=== PATIENT | female | born 1970 | race Caucasian/White ===

== ENCOUNTER 2024-09-18 07:52 | Outpatient (CLI) | payer BC, SELFPAY ==
[2024-09-18 08:52] LABS: Basophils # 0.1 K/mm3 (0-0.2); Basophils % 1.5 % (0.1-2.0); Eosinophils # 0.2 K/mm3 (0.0-0.4); Eosinophils % 3.3 % (0.1-12.0); Hematocrit 44.2 % (37.0-47.0); Lymphocytes # 1.6 K/mm3 (0.7-4.5); Lymphocytes % 33.1 % (10-50); Mean Corpuscular HGB Conc 34.1 g/dL (31.8-35.4); Mean Corpuscular Hemoglobin 30.5 pg (27.0-31.2); Mean Corpuscular Volume 89.4 fl (81-99); Mean Platelet Volume 8.7 fl (7.4-10.4); Monocytes # 0.3 K/mm3 (0.1-1.0); Monocytes % 6.2 % (1.7-9.3); Neutrophils # 2.7 K/mm3 (1.8-7.8); Neutrophils % 55.9 % (37.0-80.0); Platelet Count 188 K/mm3 (142-424); Red Blood Count 4.94 M/mm3 (4.20-5.40); Red Cell Distribution Width 13.5 % (11.5-17.5); White Blood Count 4.8 K/mm3 (4.8-10.8)
[2024-09-18 08:58] LABS: Albumin Level 4.5 g/dl (3.5-5.0); Chloride 106 mmol/L (98-107); Potassium 4.5 mmoL/L (3.5-5.1); Sodium 141 mmol/L (136-145)
[2024-09-18 09:00] LABS: Blood Urea Nitrogen 25 mg/dl (7-17); Estimated Glomerular Filt Rate 88 ml/min (>60)
[2024-09-18 09:01] LABS: Alanine Aminotransferase 19 U/L (12-78); Albumin/Globulin Ratio 1.7 (1.1-1.8); Alkaline Phosphatase 67 U/L (38-126); Anion Gap 10.5 mEq/L (5-15); Aspartate Amino Transferase 27 U/L (14-36); Bilirubin,Total 0.7 mg/dl (0.2-1.3); Carbon Dioxide 29 mmol/L (22.0-30.0); Cholesterol 221 mg/dl (140-200); GFR (African American) 106 ML/MIN (>60); Globulin 2.7 g/dL (1.3-3.2); Glucose 107 mg/dl (74-100); Total Protein,Serum 7.2 g/dl (6.3-8.2); Triglycerides 54 mg/dl (30-150); VLDL Cholesterol 11 mg/dL (0-40)
[2024-09-18 09:02] LABS: Chol/HDL Ratio 2.8 (1-3.5); HDL Cholesterol 79 mg/dl (40-60)
[2024-09-18 09:21] LABS: Hemoglobin A1C 4.7 % (4.0-6.0)
[2024-09-18 09:33] LABS: Thyroid Stimulating Hormone 1.82 uIU/mL (0.465-4.68)
[2024-09-18 10:42] LABS: Vitamin B12 844 pg/mL (239-931)
== END 2024-09-18 23:59 | disposition home or self-care (01) ==
LOC: LAB 07:58
PROVIDERS: PCP Nurse Practitioner Family; Visit Provider Nurse Practitioner Family
DX: Z00.00 Encounter for general adult medical examination without abnormal findings (principal); Z86.39 Personal history of other endocrine, nutritional and metabolic disease; R23.2 Flushing
CPT/HCPCS: 36415; 80050; 80053; 80061; 82607; 83036; 84443; 85025

== ENCOUNTER 2024-11-17 13:55 | Outpatient (CLI) | payer BC, SELFPAY ==
--- NOTE | 2024-11-17 14:04 | MM_ITS ---
PROCEDURE INFORMATION: Exam: US Right Breast, Complete MG Bilateral Diagnostic Breast Tomosynthesis Exam date and time: 11/17/2024 2:26 PM Age: 54 years old Clinical indication: Right-sided nipple discharge. TECHNIQUE: Imaging protocol: Complete ultrasound of all four quadrants of the right breast and the retroareolar regions, including ultrasound of the axilla when performed. Bilateral Diagnostic tomosynthesis and 2D mammography including computer-aided detection (CAD) when performed. Unilateral or bilateral exam. COMPARISON: MG MM DIG MAMM BI DX W/CAD 11/17/2024 1:57 PM FINDINGS: MAMMOGRAPHY: Breast composition: There are scattered areas of fibroglandular density. Breast mammogram findings: Post pectoral silicone implants are present. The contours are smooth. There is a circumscribed rounded mass in the right breast upper inner quadrant measuring 0.8 cm, which is stable since 01/29/2022, consistent with a benign process. No new or suspicious mass, architectural distortion or suspicious calcifications. ULTRASOUND: Breast ultrasound findings: Ultrasound of the right retroareolar region demonstrates a complicated cyst in the upper inner quadrant, 12 o'clock axis, 2 cm from the nipple that correlates to the circumscribed mass seen mammographically, measuring 0.7 x 0.6 x 1.0 cm. This is considered benign. In the right upper outer quadrant, 9 o'clock axis, 1 cm from the nipple there are dilated ducts with internal debris. If there is concerning nipple discharge, these can be targeted for ultrasound-guided needle biopsy. There is no suspicious mass, shadowing, or distortion. Clustered microcysts are seen in the right breast upper outer quadrant, 10 o'clock axis, 11 cm from the nipple. These appear benign. IMPRESSION: 1. Dilated ducts with internal debris in the right breast 9 o'clock axis, 1 cm from the nipple. If there is concerning nipple discharge, these can be targeted for ultrasound-guided needle biopsy. 2. Continued clinical monitoring for any persistent, spontaneous, bloody or clear nipple discharge is recommended. If the symptoms persist, breast MRI would be recommended. ASSESSMENT: BI-RADS Category 4: Suspicious.
== END 2024-11-17 23:59 | disposition home or self-care (01) ==
LOC: RAD 13:55
PROVIDERS: PCP Nurse Practitioner Family; Visit Provider Nurse Practitioner Family
DX: Z12.31 Encounter for screening mammogram for malignant neoplasm of breast (principal); N64.52 Nipple discharge; Z98.82 Breast implant status
CPT/HCPCS: 76641; 77062; 77066; G0279

== ENCOUNTER 2024-12-09 07:23 | Outpatient (CLI) | payer BC, SELFPAY ==
--- NOTE | 2024-12-09 | MM_ITS ---
FINAL REPORT CLINICAL HISTORY: s/p bx. rt breast clip placement FINDINGS: MAMMOGRAM RIGHT 2D TECHNIQUE: Standard digital 2D views COMPARISON: Abnormal diagnostic mammogram October 2024 DENSITY: There are scattered areas of fibroglandular density FINDINGS: Post biopsy marker clip is noted in satisfactory position in the central right breast at 9:00.. Postbiopsy changes are noted. IMPRESSION: Biopsy marker clip in good position ASSESSMENT: Post procedure mammogram for marker placement RECOMMENDATION: Pending histopathology evaluation Authenticated and ERN
--- NOTE | 2024-12-09 | US_ITS ---
FINAL REPORT CLINICAL HISTORY: NIPPLE DISCHARGE/ ABNORMAL MAMMVRT BREAST - RT BREAST 900 -- DR. CLIFF TIWARI FINDINGS: ULTRASOUND-GUIDED RIGHT BREAST CORE BIOPSY HISTORY: Abnormal ultrasound. Elongated lesion right breast 9:00 possibly dilated duct. COMPARISON: Recent abnormal ultrasound October 2024 TECHNIQUE: The right breast was prepped in a routine sterile fashion and locally anesthetized with 1% lidocaine. Using sonographic guidance a 15 gauge needle was directed toward the lesion of interest. Care was taken to reduce the risk of needle puncturing adjacent breast implant. The needle was positioned within the outer periphery of the lesion. A total of 4 passes were made with a 16 gauge core biopsy needle. A biopsy marker clip was deployed in satisfactory position. A post biopsy mammogram was performed and dictated separately. Limited postbiopsy images showed no evidence of significant hemorrhage. Procedure was well tolerated. IMPRESSION: 1. Technically successful image guided biopsy of right breast lesion as above. Authenticated and ERN
== END 2024-12-09 23:59 | disposition home or self-care (01) ==
PROVIDERS: PCP Nurse Practitioner Family; Visit Provider Nurse Practitioner Family
DX: R92.8 Other abnormal and inconclusive findings on diagnostic imaging of breast (principal); N64.52 Nipple discharge
CPT/HCPCS: 19083; 77065

== ENCOUNTER 2025-08-04 14:57 | Outpatient (CLI) | payer BC, SELFPAY ==
--- OUTSIDE RECORDS SUMMARY | 2022-03-06 07:20 | XMS_ITS | Continuity of Care Document ---
Author Organization [facility] Address [address] [place] [phone] Phone Care Team Providers Care Accounting Clerks Supervisor Name Role Phone Seth Arroyo Unavailable Unavailable Advance Directives Directive Yes / No Effective Date File Name No Information Encounters Encounter Description Practice Location Reason(s) For Visit Diagnoses Date Provider [facility], [address] [place] [address], [id number], tel:[phone] [facility] Major depression 2021 Miguel Seth. [address] [facility] [place], [id number], [place]. tel:[phone] [facility], [address] [place] [address], [id number], tel:[phone] [address] [place] [address] Major depression 2021 Miguel Seth. [address] [facility] [place], [id number], [place]. tel:[phone] [facility], [address] [place] [address], [id number], [place] tel:[phone] [facility] Major depression 2021 Miguel Seth. [address] [facility] [place], [id number], [place]. tel:[phone] [facility], [address] [place] [address], [id number], tel:[phone] [facility] Major depression Dec-07- 2021 Miguel Seth. [address], [place], [place], [id number], [place]. tel:[phone] Family History Family Member Type Diagnosis Age At Onset Daughter Problem (finding) Alive and well Daughter Problem (finding) manic-depressive state Payers Payer name Insurance type Covered republican ID Authoriza tion(s) No Information Social History [...]
--- OUTSIDE RECORDS SUMMARY | 2024-12-24 05:00 | XMS_ITS ---
Author Organization [facility] Address [address] [place] [address] Care Team Providers Care Community Support Worker Name Role Phone MERLY FRANK Primary Care Provider Unavailab cynthia Abernathy SLIP COVER ESTIMATOR-BC, Justina Unavailable [facility] Unavailable Unavailable REASON FOR VISIT RT HAND Encounters Encounter Location Date Provider Diagnosis [facility] [address] [place] [address] 12/24/2024 Justina Abernathy Plan Of Treatment No Information Progress Notes * SHONDA ASCENCIO LDOB:[birth year] (55 yo F)Acc No.[id number]:12/24/2024 Progress Notes Patient: SHONDA COLLADO Provider: Anna Abernathy APRN, MSN, SLIP COVER ESTIMATOR-BC :1970 A ge:54 Y S ex:Female Date:12/24/2024 Address:[address] [id number] Pcp:MERLY FRANK Subjective: * Chief Complaints: * 1 . RT HAND. * Medical History: Objective: * Vitals: Therapeutic Interventions: Assessment: Plan: * Treatment: * * Electronic signature of Geneva Abernathy SLIP COVER ESTIMATOR-BC on 08/04/2025 at 03:00 PM EDT Sign off status: Pending * Provider: Anna Abernathy APRN, MSN, SLIP COVER ESTIMATOR-BC Date: 0 12/24/2024 Generated for Printi ng/Faxing/eTransmitting on: 0 08/04/2025 03:00 PM EDT
--- OUTSIDE RECORDS SUMMARY | 2025-06-20 12:18 | XMS_ITS | Encounter Summary ---
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 Name Role Phone Unavailable Primary Care Provider Unavailabl e Reason for Visit * Physical Medicine - Authorized Specialty Diagnoses / Procedures Referred By Teresita treviño Referred To Contact Physical Therapist / Physical Therapy Diagnoses Overactive bladder Sharlene Dc MD [address] [place] [address] Phone: tel: fax: Hermila Aaron, PT [address] [place] [address] Phone: tel: fax: Referral ID Status Reason Start Date Expiration Date Visits Requested Visits Authorized [id number] Authorized Specialty Services Required 06/20/2025 06/20/2026 90 Encounter Details Date Type Department Care Team (Latest Contact Info) Description 06/20/2025 12:18 PM EDT - 06/20/2025 11:59 PM EDT Hospital [facility] Physical [facility] [address] [place] [address] Hermila Aaron, PT [address] [place] [address] Discharge Disposition: Home or Self [...] 06/02/25 Progressing MD Diagnosis: Overactive bladder Restrictions/Precautions: [place] Physician: Dao CONTRERAS Follow Up: 09/05/25 Evaluation Date: 06/20/2025 Reassessment Due: 07/21/25 Current Bladder treatment (meds):MYRBETRIQ Current Bowel treatment (supplements/meds):Linzess [] Psyllium (amount): [x] other Primary Insurance: [employer] PPO Insurance Authorization: AMB REFERRAL TO PHYSICAL THERAPY Authorized (06/02/2025-06/02/2026) Visits Requested Visits Authorized Visits Completed Visits Scheduled 1 1 -- Details Referral ID: [id number] Authorization Status Reason: -- Authorization Comments: -- Referred To: Kandy Sidhu PT at ED PHYSICAL THERAPY Referred By: Sharlene Dc MD at [facility] [place] [facility], [facility] [place] [facility] Edg Creation Date: 06/02/2025 Referral Reasons: Specialty Services Required Referral Order: AMB REFERRAL TO PHYSICAL THERAPY Time In/Out: [id number] Timed Treatment Minutes: Therapeutic activities 14 minutes [...] absent Discharge absent Pain absent GH 3cm [place] Pelvic Strength 0/5 Prolapse: 2 Strength: 0/5 Urinary frequency Daytime - frequent , she goes every 3-4 hours ; leaks if holds too long Nighttime - [x] 0 [x] 1 [] 2 [] 3 [] 4 other: Bowel problems - Frequency of BM - [x] daily [] qod [] Specify: Valsalva to defecate - [] yes [x] No [] sometimes [place] Stool chart type: [] 1 [] 2 [...] / tearing: [x] yes [] no Normal post- healing - [x] yes [] no (explain) [...] Living situation: sign other and mother, 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 Patient Goals: she would like to work [...] Mild atrophy [] other (explain): Sensation: Anal [place] [x] present [] absent [] diminished [] [...] pain. [x] Unmet [] Progressing [] Met Care Home Goals: (set for 8 weeks) Update/Status Pt [...] weeks. Treatments may consist of Therapeutic exercise 64503, Neuromuscular re-education 21370, Manual soft tissue and/or joint mobilization 71181, Patient education, Electrical stimulation (unattended) 33301, Electrical stimulation (unattended Medicare) G0283, Therapeutic activity 29847, and Self care/Home management training 19230. Patient present with co-morbidities of incontinence and [...] 9:00 AM EDT Office Visit [facility] [address] [address] China Tavares, TIM [address] [place] [address] Scheduled Referrals Name Type Priority Associated Diagnoses Orde r Schedule AMB REFERRAL TO PHYSICAL THERAPY Outpatient Referral Routine Overactive bladder Ordered: 06/02/2025 documented as of this encounter Visit Diagnoses Not on filedocumented in this encounter
--- OUTSIDE RECORDS SUMMARY | 2025-06-28 09:11 | XMS_ITS | Encounter Summary ---
Author Organization [place] [address] Care Team Providers Care Corking Machine Operator Name Role Phone Unavailable Primary Care Provider Unavailabl e Reason for Visit * Physical Medicine - Authorized Specialty Diagnoses / Procedures Referred By Teresita treviño Referred To Contact Physical Therapist / Physical Therapy Diagnoses Overactive bladder Sharlene Dc MD [address] [place] [address] Phone: tel: fax: Hermila Aaron, PT [address] [place] [address] Phone: tel: fax: Referral ID Status Reason Start Date Expiration Date Visits Requested Visits Authorized [id number] Authorized Specialty Services Required 06/20/2025 06/20/2026 90 Encounter Details Date Type Department Care Team (Latest Contact Info) Description 06/28/2025 9:11 AM EDT - 06/28/2025 11:59 PM EDT Hospital Encounter [facility] Physical Therapy [address] [place] [address] Hermila Aaron, PT [address] [place] [address] Discharge Disposition: Home or Self [...] in this encounter Progress Notes * Hermila Aaron PT - 06/28/2025 9:15 AM EDT Images from the original note were not included. Physical Therapy Treatment Note Patient Name: Chanda Larry : 1970 06/28/2025 Visit #: 2 Onset Date: chronic, MD referral 06/02/25 Progressing MD Diagnosis: Overactive bladder Restrictions/Precautions: [place] Physician: Dao CONTRERAS Follow Up: 09/05/25 Evaluation Date: 06/20/2025 Reassessment Due: 07/21/25 Current Bladder treatment (meds):MYRBETRIQ Current Bowel treatment (supplements/meds):Linzess [] Psyllium (amount): [x] other Primary Insurance: ANTHEM/ANTHEM PPO Insurance Authorization: AMB REFERRAL TO PHYSICAL THERAPY Authorized (06/20/2025-06/20/2026) Visits Requested Visits Authorized Visits Completed Visits Scheduled 1 2 Details Referral ID: [id number] Authorization Status Reason: Covered Benefit Authorization Comments: -- Referred To: Hermila Aaron, PT at [facility] Referred By: Sharlene Dc MD at [facility], [facility] Creation Date: 06/02/2025 Referral Reasons: Specialty Services Required Referral Order: AMB REFERRAL TO PHYSICAL THERAPY Time In/Out: 921/1000 Timed Treatment Minutes: Therapeutic activities 5 minutes Therapeutic Exercise 30 minutes Total Timed Code Treatment Minutes: 35 Total Treatment Minutes: 35 Medication Changes: no changes Pain is not an issue for which treatment is being performed. Subjective She is doing her exercises. Reports it doesn't feel prolapsed as much. Reports she still leaks after urination Bladder - she has not increased her water intake yet. She has to urge to urinate and she is able toignore it. Bowel - moving normal for her , she got a squatty potty. Objective FOTO PFDI pain (+) PFDI Urinary (+) Bowel Cnst (*) Bowel Leakage (*) Urinary Problem (*) Bowel Problems PFDI Bowel(+) PFDI Prolapse (+) FSM 17 68 93 56 0 FOTO Avg Avg Change # visits *higher score represents better pelvic floor functioning +lower score represents better pelvic floor functioning PSFS Activity 06/20/2025 Squatting wearing jeans 6 Coughing 6 Having a bowel movement 6 Treatment Reviewed importance of water [x] Reviewed strategies to protect the pelvic floor from strain / prolapse. PF strengthening: sitting and supine with pillow under pelvis [x] Short-hold (1 sec): 10 Times, [x] Long-hold (10 sec): 10 Times, Supine contract , relax and bulge 10 reps with cues for elongation Supine Hip add and hip abd with blue band with kegel with 5 sec x 10 reps Standing : PF contractions : 10 x1 sec hold, 5 sec x 10reps PF relaxation to help reduce discomfort and irritation/pain of pelvic floor and lower abdomen: [x] Belly Breathin times [x] PFM Relaxation/BULGE 10 reps Assessment Patient tolerated treatment well. Trouble with relaxation and bulging of PF. Goals Short Term Goals: (set for 4 weeks) Update/Status Patient will be independent with HEP upon D/C in order to promote long-term health and reduce risk for injury. [x] Unmet [] Progressing [] Met Pt to demo understanding of healthy bowel and bladder habits to promote normal ADL function, limiting pain. [x] Unmet [] Progressing [] Met Inbound Ingredient Logistics Specialist Goals: (set for 8 weeks) Update/Status Pt [...] [x] Unmet [] Progressing [] Met Plan [x]Continue per plan of care [] Alter current plan (see comments) [] Plan of care initiated [] Hold pending MD visit [] Discharge Comment: Electronically signed by: Signed: Hermila Aaron PT Date: 06/28/2025 documented in this encounter Miscellaneous Notes * Addendum Note - Hermila Aaron PT - 06/28/2025 9:15 AM EDTEncounter addended by: Hermila Aaron PT on: 06/28/2025 11:38 AM Actions taken: Pend clinical note * Addendum Note - Hermila Aaron PT - 06/28/2025 9:15 AM EDTEncounter addended by: Hermila Aaron PT on: 06/28/2025 12:32 PM Actions taken: Clinical Note Signed documented in this encounter Plan of Treatment Upcoming Encounters Date Type Department Care Team (Late st Contact Info) Description 09/05/2025 9:00 AM EDT Office Visit [facility] [address] [address] China Tavares APRN [address] [place] [address] documented as of this encounter Visit Diagnoses Not on filedocumented in this encounter
--- NOTE | 2025-08-04 15:00 | MM_ITS ---
PROCEDURE INFORMATION: Exam: MG Right Diagnostic Breast Tomosynthesis Exam date and time: 08/04/2025 3:17 PM Age: 55 years old Clinical indication: Six-month follow-up after a breast biopsy yielding papilloma. TECHNIQUE: Imaging protocol: Right Diagnostic tomosynthesis and 2D mammography including computer-aided detection (CAD) when performed. Unilateral or bilateral exam. COMPARISON: 1. MG MM CLIP PLACEMENT RT 12/09/2024 8:34 AM 2. MG MM DIG MAMM BI DX W/CAD 11/17/2024 1:57 PM FINDINGS: MAMMOGRAPHY: Breast composition: There are scattered areas of fibroglandular density. Breast mammogram findings: No new or suspicious mass, unexplained distortion, or suspicious calcifications are seen in the right breast. There is a post pectoral silicone implant with a smooth contour. A biopsy tissue marker is seen in the upper outer aspect of the breast at the anterior depth, from biopsy that was performed on 12/09/2024. No suspicious surrounding abnormality is seen. However further evaluation is recommended with ultrasound since the original finding was best seen by ultrasound. IMPRESSION: 1. No mammographic evidence of malignancy. 2. A breast ultrasound of the right breast 9 o'clock axis, 1 cm from the nipple is recommended in the previous area of ductal change that was biopsied on 12/09/2024 yielding papilloma. ASSESSMENT: BI-RADS Category 0: Incomplete- Need Additional Imaging Evaluation.
--- OUTSIDE RECORDS SUMMARY | 2025-08-04 15:00 | XMS_ITS | Encounter Summary ---
Author Organization [place] [address] Care Team Providers Care Distribution Lineman Name Role Phone Unavailable Primary Care Provider Unavailabl e Encounter Details Date Type Department Care Team (Late st Contact Info) Description 06/20/2025 Orders Only [facility] Physical Therapy [address] [place] [phone] Sharlene Dc MD [address] [place] [address] Social History Tobacco Use Types Packs/Day Years [...] on file documented as of this encounter Progress Notes * Provider, Unknown - 06/20/2025 3:40 PM EDT documented in this encounter Plan of Treatment Upcoming Encounters Date Type Department Care Team (Late st Contact Info) Description 09/05/2025 9:00 AM EDT Office Visit [facility] [address] [address] China Tavares APRN [address] [place] [address] documented as of this encounter Visit Diagnoses Not on filedocumented in this encounter
--- OUTSIDE RECORDS SUMMARY | 2025-08-04 15:00 | XMS_ITS | Encounter Summary ---
Author Organization [place] [address] Care Team Providers Care Plate Sensitizer Name Role Phone Unavailable Primary Care Provider Unavailabl e Encounter Details Date Type Department Care Team (Latest Contact Info) Description 06/06/2025 Results Follow-Up [facility] [address] [address] Sharlene Dc MD [address] [place] [address] URINALYSIS, URINE CULTURE (NO STAIN) Social History Tobacco Use Types Packs/Day Years [...] as of this encounter Progress Notes * Sharlene Dc MD - 06/06/2025 7:46 AM EDT Patient has negative urine culture. Notified via MyChart of results. Thank you. Sharlene Dc MD documented in this encounter Plan of Treatment Upcoming Encounters Date Type Department Care Team (Late st Contact Info) Description 09/05/2025 9:00 AM EDT Office Visit [facility] [address] [address] China Tavares APRN [address] [place] [address] documented as of this encounter Visit Diagnoses Not on filedocumented in this encounter
--- OUTSIDE RECORDS SUMMARY | 2025-08-04 15:00 | XMS_ITS | Clinical Summary ---
Author Organization [facility] Address [address] [place] [phone] Phone Care Team Providers Care Animal Warden Name Role Phone Unavailable Primary Care Provider Unavailabl e Allergies No known active allergies Medications venlafaxine (EFFEXOR-XR) 150 mg Oral Capsule, Sust. Release 24 hr Take 150 mg by mouth daily. Active cyanocobalamin 1,000 mcg Oral Tablet Take 1,000 mcg by mouth daily. Active MULTIVITAMIN ORAL Take by mouth. Active mirabegron (MYRBETRIQ) 25 mg Oral Tablet Sustained Release 24 hrIndications:Ove ractive bladder Take 1 Tablet by mouth daily. 30 Tablet 5 5 Active linaCLOtide (LINZESS) 72 mcg Oral CapsuleIndication s:Constipation, unspecified constipation type Take 1 Capsule by mouth daily. 30 Capsule 5 5 Active Encounters Date Type Department Care Team Description 06/28/2025 9:11 AM EDT - 06/28/2025 11:59 PM EDT Hospital Encounter [facility] Physical [address] [address] Hermila Aaron, PT Discharge Disposition: Home or Self Care 06/20/2025 12:18 PM EDT - 06/20/2025 11:59 PM EDT Hospital Encounter [address] [address] [phone] Hermila Aaron, PT Discharge Disposition: Home or Self Care 06/20/2025 Plan of Care Documentation [facility] Physical [address] [address] 06/20/2025 Orders Only [facility] Physical Therapy [address] [place] [address] Sharlene Dc MD 06/06/2025 Results Follow-Up [facility] [address] [place] [address] Sharlene Dc MD URINALYSIS, URINE CULTURE (NO STAIN) 06/02/2025 9:00 AM EDT Office Visit [facility] [address] [address] Sharlene Dc MD Incomplete uterovaginal prolapse (Primary Dx); Mixed incontinence; Overactive bladder; Urinary frequency; Constipation, unspecified constipation type from Last 3 Months Surgical History Surgery Date Site/Laterality Comments BLADDER SUSPENSION 08/31/2022 - 09/30/2022 TOT PARTIAL HYSTERECTOMY Still has ovaries Social History Tobacco Use Types Packs/Day Years Used Date Smoking Tobacco: Former Cigarettes Q uit: 2020 Smokeless Tobacco: Never Tobacco Cessation:Counseling Given: Not Answered Alcohol Use Standard Drinks/Week Comments Not Currently 0 (1 standard drink = 0.6 oz pur e alcohol) Sexually Active Control Partners Comments Yes Comments No Sex and Gender Information Value Date Recorded Sex Assigned at Not on file Legal Sex Female 9:32 AM EDT Gender Identity Not on file Sexual Orientation Not on file Obstetrics History Para Term AB IAB SAB Ectopic Multiple Livin g Live Births 2 2 2 2 2 Date Outcome GA Total Labor Labor/2nd/3rd Weight Sex Type Anes PTL Vanessa A1 A5 Name Clin 1994 Term F Vag-S pont Living 2003 Term F Vag-S pont Living Last Filed Vital Signs Vital Sign Reading Time Taken Comments Blood Pressure 130/70 06/02/2025 9:09 AM EDT Pulse 87 06/02/2025 9:09 AM EDT Temperature - - Respiratory Rate - - Oxygen Saturation 96% 06/02/2025 9:09 AM EDT Inhaled Oxygen Concentration - - Weight 81 kg (178 lb 9.6 oz) 06/02/2025 9:09 AM EDT Height - - Body Mass Index - - Plan of Treatment Upcoming Encounters Date Type Department Care Team (Late st Contact Info) Description 09/05/2025 9:00 AM EDT Office Visit [facility] [address] [address] China Tavares APRN [address] [place] [address] Health Maintenance Due Date Last Done Comments Annual Wellness Exam 1975 DTaP/TDaP/Td (1 - Tdap) 1991 Hepatitis B Vaccine (1 of 3 - 19+ 3-dose series) 1991 HPV/Pap Cotest 2002 Cologuard 2017 Colon Cancer Screening 2017 Colonoscopy 2017 FIT 2017 Sigmoidoscopy 2017 Virtual Colonography 2017 Pneumococcal Vaccine 50+ (1 of 1 - PCV) 2022 Zoster (1 of 2) 2022 Cervical Cancer Screening 11/02/2023 Pap Smear 11/02/2023 11/02/2020 Breast Cancer Screening 02/12/2025 02/12/2023 COVID-19 Vaccine ( - 2023-2 5 season) 2025 Influenza Vaccine (#1) 2025 Meningococcal B Vaccine Aged Out No l onger eligible based on patient's age to complete this topic Procedures Procedure Name Priority Date/Time Associated Diagnosis Comments [facility] URINALYSIS POC Routine 06/02/2025 9: 33 AM EDT Urinary frequency URINALYSIS Routine 06/02/2025 9:31 AM EDT Urinary frequency URINE CULTURE (NO STAIN) Routine 06/02/2025 9:31 AM EDT Urinary frequency from Last 3 Months Results * (ABNORMAL) [facility]IN[facility] POC (06/02/2025 9:33 AM EDT) UA Color POC Yellow Color 06/02/2025 9:35 AM EDT [facility] Appear POC Clear Clear 06/02/2025 9:35 AM EDT [facility] UA Gluc POC Negative Negative mg/dL 06/02/2025 9:35 AM EDT [facility] UA Bili POC Negative Negative 06/02/2025 9:35 AM EDT [facility] UA Ketones POC Negative Negative mg/dL 06/02/2025 9:35 AM EDT [facility] UA SG POC 1.020 1.001 - 1.035 no units 06/02/2025 9:35 AM EDT [facility] UA Blood POC Trace-Intac t(A) Negative 06/02/2025 9:35 AM EDT [facility] UA pH POC 7.5 5.0 - 8.0 pH 06/02/2025 9:35 AM EDT [facility] UA Protein POC Negative Negative mg/dL 06/02/2025 9:35 AM EDT [facility] UA Urobilinogen POC 0.2 0.2, 1.0 06/02/2025 9:35 AM EDT [facility] UA Nitrite POC Negative Negative 06/02/2025 9:35 AM EDT [facility] UA Leuk Est POC Negative Negative 9:35 AM EDT [facility] Urine STRUCTURE OF URINARY TRACT PROPER / Unknown 06/02/2025 9:33 AM EDT 06/02/2025 9:35 AM EDT us Sharlene Dc MD POINT OF CARE TEST ORDERA BLES Final Result [facility] [place] [address] * (ABNORMAL) URINALYSIS (06/02/2025 9:31 AM EDT) UA Color Yellow 06/02/2025 9:02 PM EDT [facility] UA Appear Cloudy(A) Clear 06/02/2025 9:02 PM EDT [facility] UA Glucose Negative Negative mg/dL 06/02/2025 9:02 PM EDT [facility] UA Ketones Negative Negative mg/dL 06/02/2025 9:02 PM EDT [facility] UA Blood Negative Negative 06/02/2025 9:02 PM EDT [facility] UA pH 7.5 5.0 - 8.0 pH 06/02/2025 9:02 PM EDT [facility] UA Protein Negative Negative mg/dL 06/02/2025 9:02 PM EDT [facility] UA Urobilinogen Normal <=1 mg/dL 9:02 PM EDT [facility] UA Bili Negative Negative 06/02/2025 9:02 PM EDT [facility] UA Nitrite Negative Negative 06/02/2025 9:02 PM EDT [facility] UA Leuk Est Negative Negative 06/02/2025 9:02 PM EDT [facility] UA Spec Grav 1.018 1.001 - 1.035 no units 06/02/2025 9:02 PM EDT [facility] Comment:Reference range john d for random specimens only. UA WBC 0 0 - 4 /HPF 06/02/2025 9:02 PM EDT [facility] UA RBC <1 0 - 3 /HPF 06/02/2025 9:02 PM EDT [facility] UA Squam Epi 1+ /LPF 06/02/2025 9:02 PM EDT [facility] UA Amorph 1+ /HPF 06/02/2025 9:02 PM EDT [facility] Urine URINARY BLADDER STRUCTURE / Unknown 06/02/2025 9:31 AM EDT 06/02/2025 9:31 AM EDT us Sharlene Dc MD URINE ORDERABLES Final Re sult [facility] [address] [facility] , [address] [place] [id number] * URINE CULTURE (NO STAIN) (06/02/2025 9:31 AM EDT) Culture No growth at 30 hours. 06/04/2025 3:09 AM EDT [facility] Urine URINARY BLADDER STRUCTURE / Unknown 06/02/2025 9:31 AM EDT 06/02/2025 9:31 AM EDT Sharlene cD MD MICROBIOLOGY - GENERAL OR DERABLES Final Result [facility] [address] [facility] [facility] , [place] [address] from Last 3 Months Insurance [employer] PPO ANTHORALIA PPO
--- OUTSIDE RECORDS SUMMARY | 2025-08-04 15:00 | XMS_ITS | Clinical Summary ---
Author Organization [facility] Address [address] [place] [address], [address] [place] [address] Care Team Providers Care On Air Talent Name Role Phone Unavailable Primary Care Provider Unavailabl e Social History Tobacco Use Types Packs/Day Years Used Date Smoking Tobacco: Never Assessed Comments Unknown Sex and Gender Information Value Date Recorded Sex Assigned at Not on file Legal Sex Female 11:37 PM EST Gender Identity Not on file Sexual Orientation Not on file Plan of Treatment Not on file
--- OUTSIDE RECORDS SUMMARY | 2025-08-04 15:00 | XMS_ITS | Patient Health Record ---
Author Organization [facility] Address [address] [facility] [place] [address] Care Team Providers Care Funeral Attendant Name Role Phone KAY FRANKEEN Primary Care Provider Unavailab cynthia Abernathy HAIR DRESSER-BC, Justina Unavailable [phone] [facility] Unavailable Unavailable Allergies No Known Allergies Reason For Referral No Information Medications Medication SIG (Take, Route, Fr equency, Duration) Notes Start Date End Date Status Vitamin B Complex Ac tive stool softner Active Effexor Active Immunizations Vaccine Route Administration Date Status Comme nts INFLUENZA Unknown 12/18/2023 Refused Social History Tobacco Use: Social History Observation Description Date Details (start date - stop date) Never Smoker NA - NA smoking Question Answer Notes Are you a: non smoker Additional Findings: Tobacco Non-User Current no n-smoker Alcohol Screen Question Answer Notes Did you have a drink containing alcohol in the p ast year? No Points 0 Interpretation Negative Problems Problem Type SNOMED Code ICD Code Onset Dates Problem Status W/U Status Risk Notes Problem Other extraarticular fracture of lower end of right radius, subsequent encounter for closed fracture with routine healing (S52.551D) Active confirmed Problem Closed fracture of distal end of right radius (disorder) ([id number]) Other closed intra-articular fracture of distal end of right radius, initial encounter (S52.571A) Active confirmed Vital Signs Heart Rate 74 /min 01/14/2025 Temperature 98.0 degrees Fahrenheit 01/14/2025 Blood pressure diastolic 69 mm Hg 01/14/2025 Height 66 in 01/14/2025 Blood pressure systolic 122 mm Hg 01/14/2025 Weight 150 lbs 01/14/2025 BMI 24.21 01/14/2025 Encounters Encounter Location Date Provider Diagnosis [facility] [address] [place] [address] 01/14/2025 Justina Abernathy Other extraarticular fracture of lower end of right radius, subsequent encounter for closed fracture with routine healing S52.551D Assessments Encounter Date Diagnosis (ICD Code) Assessment Notes Treatment Notes Treatment Clinical Notes Section Notes 01/14/2025 Other extraarticular fracture of lower end of right radius, subsequent encounter for closed fracture with routine healing (ICD-10 - S52.551D) patient is doing well. no restrictions at this time. FU 1 year 01/14/2025 Other The patient was counseled reguarding their diagnosis, the natural history of the diagnosis, the different potential risks as well as the treatment modalities and differential diagnosis. Supervising Physicians: Dr. Henri Reyes, Dr. Nasir Hunter, Dr. David Enrique, Les Hester and Dr. Kvng Robertson. The patient is to return immediately to [facility] for any complications prior to their follow up or go to the nearest Emergency Room without delay. Plan Of Treatment Pending Test Test Name Order Date Xray: Wrist Right 2 views 04/08/2022 Xray: Wrist Right 2 views 04/22/2022 Xray: Wrist Right 2 views 05/22/2022 Xray: Wrist Right 2 views 07/25/2022 Xray: Wrist Right 2 views 09/30/2022 Xray: Wrist Right 2 views 12/05/2022 Xray: Wrist Right 2 views 12/18/2023 Xray: Wrist Right 3 views 01/14/2025 Insurance Providers Payer Name Payer Address Payer Phone Subscriber Number Group Number Insured Name Patient Relationship to Insured Coverage Start Date Coverage End Date [facility] [address] [place] [address] [id number] [phone] [id number] SHONDA ASCENCIO Self - patient is the insured Medical (General) History Medical History History ICD Code Anxiety disorder Surgical History Surgery Date(Month/Year) Bladder sling 09/12/22 Rt distal radius ORIF 03/26/22 Hospitalization History Reason Date(Month/Year) post op
--- OUTSIDE RECORDS SUMMARY | 2025-08-04 15:00 | XMS_ITS | Encounter Summary ---
Author Organization [place] [address] Care Team Providers Care Endocrinology Teacher Name Role Phone Unavailable Primary Care Provider Unavailabl e Encounter Details Date Type Department Care Team (Late st Contact Info) Description 06/20/[address] [facility] Physical Therapy [address] [place] [phone] Social History Tobacco Use Types Packs/Day Years [...] on file documented as of this encounter Miscellaneous Notes * Therapist Progress Report - Hermila Aaron, PT - 06/20/2025 3:58 PM EDT Images from the original note were not included. Physical Therapy Pelvic Floor Evaluation Patient Name: Chanda Larry : 1970 Visit #: 1 Onset Date: chronic, MD referral 06/02/25 Progressing MD Diagnosis: Overactive bladder Restrictions/Precautions: [place] Physician: Dao CONTRERAS Follow Up: 09/05/25 Evaluation Date: 06/20/2025 Reassessment Due: 07/21/25 Current Bladder treatment (meds):MYRBETRIQ Current Bowel treatment (supplements/meds):Linzess [] Psyllium (amount): [x] other Primary Insurance: ANTHEM/ANTHEM PPO Insurance Authorization: AMB REFERRAL TO PHYSICAL THERAPY Authorized (06/02/2025-06/02/2026) Visits Requested Visits Authorized Visits Completed Visits Scheduled 1 1 -- 1 Details Referral ID: [id number] Authorization Status Reason: -- Authorization Comments: -- Referred To: Kandy Sidhu, PT at [facility] PHYSICAL THERAPY Referred By: Sharlene Dc MD at [facility], [facility] Creation Date: 06/02/2025 Referral Reasons: Specialty Services Required Referral Order: AMB REFERRAL TO PHYSICAL THERAPY Time In/Out: 7194-1351 Timed Treatment Minutes: Therapeutic activities 14 minutes [...] absent Discharge absent Pain absent GH 3cm [place] Pelvic Strength 0/5 Prolapse: 2 Strength: 0/5 Urinary frequency Daytime - frequent , she goes every 3-4 hours ; leaks if holds too long Nighttime - [x] 0 [x] 1 [] 2 [] 3 [] 4 other: Bowel problems - Frequency of BM - [x] daily [] qod [] Specify: Valsalva to defecate - [] yes [x] No [] sometimes [place] Stool chart type: [] 1 [] 2 [...] Living situation: sign other and mother, 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 Patient Goals: she would like to work [...] Mild atrophy [] other (explain): Sensation: Anal [place] [x] present [] absent [] diminished [] [...] pain. [x] Unmet [] Progressing [] Met Senior Care Goals: (set for 8 weeks) Update/Status Pt [...] weeks. Treatments may consist of Therapeutic exercise 17408, Neuromuscular re-education 23149, Manual soft tissue and/or joint mobilization 18452, Patient education, Electrical stimulation (unattended) 45095, Electrical stimulation (unattended Medicare) G0283, Therapeutic activity 92771, and Self care/Home management training 82460. Patient present with co-morbidities of incontinence and [...] 9:00 AM EDT Office Visit [facility] [address] [address] China Tavares, TIM [address] [place] [address] documented as of this encounter Visit Diagnoses Not on filedocumented in this encounter
== END 2025-08-04 23:59 | disposition home or self-care (01) ==
LOC: RAD 14:58
PROVIDERS: PCP Nurse Practitioner Family; Visit Provider Nurse Practitioner Family
DX: D24.9 Benign neoplasm of unspecified breast (principal); R92.8 Other abnormal and inconclusive findings on diagnostic imaging of breast; R92.321 Mammographic fibroglandular density, right breast
CPT/HCPCS: 77061; 77065; G0279

== ENCOUNTER 2025-08-15 15:11 | Outpatient (CLI) | payer BC, SELFPAY ==
--- OUTSIDE RECORDS SUMMARY | 2022-03-06 07:20 | XMS_ITS | Continuity of Care Document ---
Author Organization [facility] Address [address] [place] [phone] Phone Care Team Providers Care Care Partner Name Role Phone Seth Arroyo Unavailable Unavailable Advance Directives Directive Yes / No Effective Date File Name No Information Encounters Encounter Description Practice Location Reason(s) For Visit Diagnoses Date Provider [facility], [address] [place] [address], [id number], tel:[phone] [facility] Major depression 2021 Miguel Seth. [address] [facility] [place] [place], [id number], [place]. tel:[phone] [facility], [address] [place] [address], [id number], tel:[phone] [address] [place] [address] Major depression 2021 Miguel Seth. [address] [facility] [place], [id number], [place]. tel:[phone] [facility], [address] [place] [address], [id number], [place] tel:[phone] [facility] Major depression 2021 Miguel Seth. [address] [facility] [place] [place], [id number], [place]. tel:[phone] [facility], [address] [place] [address], [id number], tel:[phone] [facility] Major depression Dec-07- 2021 Miguel Seth. [address], [place], [place], [id number], [place]. tel:[phone] Family History Family Member Type Diagnosis Age At Onset Daughter Problem (finding) Alive and well Daughter Problem (finding) manic-depressive state Payers Payer name Insurance type Covered libertarian ID Authoriza tion(s) No Information Social History [...]
--- OUTSIDE RECORDS SUMMARY | 2024-12-24 05:00 | XMS_ITS ---
Author Organization [facility] Address [address] [place] [address] Care Team Providers Care Human Anatomy Teacher Name Role Phone MERLY FRANK Primary Care Provider Unavailab cynthia Abernathy SOIL SCIENCE TECHNICAL OFFICER-BC, Justina Unavailable [facility] Unavailable Unavailable REASON FOR VISIT RT HAND Encounters Encounter Location Date Provider Diagnosis [facility] [address] [place] [address] 12/24/2024 Justina Abernathy Plan Of Treatment No Information Progress Notes * SHONDA ASCENCIO LDOB:[birth year] (55 yo F)Acc No.[id number]:12/24/2024 Progress Notes Patient: SHONDA COLLADO Provider: Anna Abernathy APRN, MSN, SOIL SCIENCE TECHNICAL OFFICER-BC :1970 A ge:54 Y S ex:Female Date:12/24/2024 Address:[address] [id number] Pcp:MERLY FRANK Subjective: * Chief Complaints: * 1 . RT HAND. * Medical History: Objective: * Vitals: Therapeutic Interventions: Assessment: Plan: * Treatment: * * Electronic signature of Geneva Abernathy SOIL SCIENCE TECHNICAL OFFICER-BC on 08/15/2025 at 03:13 PM EDT Sign off status: Pending * Provider: Anna Abernathy APRN, MSN, SOIL SCIENCE TECHNICAL OFFICER-BC Date: 0 12/24/2024 Generated for Printi ng/Faxing/eTransmitting on: 0 08/15/2025 03:13 PM EDT
--- OUTSIDE RECORDS SUMMARY | 2025-06-20 12:18 | XMS_ITS | Encounter Summary ---
Author Organization [place] [address] Care Team Providers Care Infrastructure Design Engineer Name Role Phone Unavailable Primary Care Provider Unavailabl e Reason for Visit * Physical Medicine - Authorized Specialty Diagnoses / Procedures Referred By Teresita treviño Referred To Contact Physical Therapist / Physical Therapy Diagnoses Overactive bladder Sharlene Dc MD [address] [place] [address] Phone: tel: fax: Hermila Aaron, PT [address] [place] [address] Phone: tel: fax: Referral ID Status Reason Start Date Expiration Date Visits Requested Visits Authorized [id number] Authorized Specialty Services Required 06/20/2025 06/20/2026 90 Encounter Details Date Type Department Care Team (Latest Contact Info) Description 06/20/2025 12:18 PM EDT - 06/20/2025 11:59 PM EDT Hospital Encounter [facility] Physical Therapy [address] [place] [address] Hermila Aaron, PT [address] [place] [address] Discharge Disposition: Home or Self Care Social History Tobacco Use Types Packs/Day Years Used Date Smoking Tobacco: Former Cigarettes Q uit: 2020 Smokeless Tobacco: Never Alcohol Use Standard Drinks/Week Comments Not Currently 0 (1 standard drink = 0.6 oz pur e alcohol) Sexually Active Control Partners Comments Yes Comments No Sex and Gender Information Value Date Recorded Sex Assigned at Not on file Legal Sex Female 9:32 AM EDT Gender Identity Not on file Sexual Orientation Not on file documented as of this encounter Medications at Time of Discharge cyanocobalamin 1,000 mcg Oral Tablet Take 1,000 mcg by mouth daily. linaCLOtide (LINZESS) 72 mcg Oral CapsuleIndications :Constipation, unspecified constipation type Take 1 Capsule by mouth daily. 30 Capsule 5 06/02/2025 mirabegron (MYRBETRIQ) 25 mg Oral Tablet Sustained Release 24 hrIndications:Over active bladder Take 1 Tablet by mouth daily. 30 Tablet 5 06/02/2025 MULTIVITAMIN ORAL Take by mouth. venlafaxine (EFFEXOR-XR) 150 mg Oral Capsule, Sust. Release 24 hr Take 150 mg by mouth daily. documented as of this encounter Discharge Disposition Disposition Code Departure Means Destination Home or Self Care documented in this encounter Progress Notes * Hermila Aaron, PT - 06/20/2025 12:30 PM EDT Images from the original note were not included. Physical Therapy Pelvic Floor Evaluation Patient Name: Chanda Larry : 1970 Visit #: 1 Onset Date: chronic, MD referral 06/02/25 Progressing MD Diagnosis: Overactive bladder Restrictions/Precautions: [place] Physician: Dao CONTRERAS Follow Up: 09/05/25 Evaluation Date: 06/20/2025 Reassessment Due: 07/21/25 Current Bladder treatment (meds):MYRBETRIQ Current Bowel treatment (supplements/meds):Linzess [] Psyllium (amount): [x] other Primary Insurance: [employer] PPO Insurance Authorization: AMB REFERRAL TO PHYSICAL THERAPY Authorized (06/02/2025-06/02/2026) Visits Requested Visits Authorized Visits Completed Visits Scheduled 1 1 -- Details Referral ID: [id number] Authorization Status Reason: -- Authorization Comments: -- Referred To: Kandy Sidhu PT at ED PHYSICAL THERAPY Referred By: Sharlene Dc MD at [facility], [facility]g Creation Date: 06/02/2025 Referral Reasons: Specialty Services Required Referral Order: AMB REFERRAL TO PHYSICAL THERAPY Time In/Out: 9929-0160 Timed Treatment Minutes: Therapeutic activities 14 minutes Therapeutic Exercise 15 minutes Total Timed Code Treatment Minutes: 29 Untimed Treatment Minutes: PT Eval Total Treatment Minutes: 60 This evaluation to serve as D/C summary if the patient doesn't return for further treatment. Chantel Larry is a 55 y.o. female referred by Sharlene Dc MD to outpatient Physical Therapy with a primary diagnosis of: Overactive bladder Bladder 2021 ,partial hysterctomy Has your problem been [x] getting worse [] stay the same [] getting better Have you ever had treatment for this problem [x] no [] yes (explain) Sharlene Dc MD OV:Pelvic Exam: Normal EFG Atrophy mild Normal mons and clitoris Normal labia Normal urethra and meatus Normal perineum and anus No masses Prolapse Stage 2 posterior Bleeding absent Discharge absent Pain absent GH 3cm [place] Pelvic Strength 0/5 Prolapse: 2 Strength: 0/5 Urinary frequency Daytime - frequent , she goes every 3-4 hours ; leaks if holds too long Nighttime - [x] 0 [x] 1 [] 2 [] 3 [] 4 other: Bowel problems - Frequency of BM - [x] daily [] qod [] Specify: Valsalva to defecate - [] yes [x] No [] sometimes [place] Stool chart type: [] 1 [] 2 [] 3 [] 4 [] 5 [] 6 [x] 7 Using a squatty potty: [] yes [x] No shown pictures. Leakage frequency: Bladder: [] none [] daily [x] other (explain) ; it varies. Depends on drinking /how often Bowel: [x] none [] yes, Frequency: Protection: Type: [x] none [] urinary pads [] menstrual pads [] Depends # / day: [] N/A [] 1 [] 2 [] 3 [] 4 [] 5 Fluid intake - [x] water - she does not drink much, 1- 2 cups [] soda ( [] regular [] diet) [] coffee ( [] regular [] decaf) [] additives [x] tea ( [x] regular [] decaf) one tea per day. [] Other (explain) Caffeine use - [x] see above; explain: Hx UTI - [x] no [] yes OB History: OB History 2 Para 2 Term 2 AB Living 2 SAB IAB Ectopic Multiple Live Births 2 # of Pregnancies:2 # of Deliveries:2 [] [x] Vaginal Episiotomy / tearing: [x] yes [] no Normal post-marija healing - [x] yes [] no (explain) Pelvic History: Regular menstrual cycles - [] yes [x] no (explain) ([] menopause [] hysterectomy) pelvic screening / PAP test: [x] Yes per dao no pain [] no [] N/A Pain: Pain with tampon use - [] yes [x] no [] N/A Pain with intercourse - [] yes [x] no [] N/A Is pain a problem for which patient is seeking care? No Pain is not an issue for which treatment is being performed. 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 Living situation: sign other and mother, daughter talent partner. Patient Goals: she would like to work on her prolapse If she squats, she feels it with jeans on, very uncomfortable. Have you received any Speech or Physical Therapy this year? [] yes [x] no Are you currently receiving any home health services? [] yes [x] no Any Problems with speech, communication, memory? [] yes (explain) [x] no Any barriers to learning? [] yes (explain) [x] no Recent falls? [] yes (explain) [] no Pt's rating of overall health: [] Excellent [x] good [] fair [] poor Any significant weight gain/loss? [x] yes Amount: gain: not sure with smoking [] no Rate diet [] good [x] fair [] poor History of/current domestic violence [] yes [x] no Do you feel safe in your home? [] N/A [x] yes [] no History of sexual abuse and/or trauma [] N/A [] yes [x] no No past medical history on file. Past Surgical History: Procedure Laterality Date BLADDER SUSPENSION 08/2022 TOT PARTIAL HYSTERECTOMY Still has ovaries (Not in a hospital admission) Current Outpatient Medications: cyanocobalamin 1,000 mcg Oral Tablet, Take 1,000 mcg by mouth daily., Disp: , Rfl: linaCLOtide (LINZESS) 72 mcg Oral Capsule, Take 1 Capsule by mouth daily., Disp: 30 Capsule, Rfl: 5 mirabegron (MYRBETRIQ) 25 mg Oral Tablet Sustained Release 24 hr, Take 1 Tablet by mouth daily., Disp: 30 Tablet, Rfl: 5 MULTIVITAMIN ORAL, Take by mouth., Disp: , Rfl: venlafaxine (EFFEXOR-XR) 150 mg Oral Capsule, Sust. Release 24 hr, Take 150 mg by mouth daily., Disp: , Rfl: No Known Allergies There is no height or weight on file to calculate BMI. Objective [] FOTO / PSFS discussed with pt [x] FOTO was completed prior to PT session FOTO PFDI pain (+) PFDI Urinary (+) Bowel Cnst (*) Bowel Leakage (*) Urinary Problem (*) Bowel Problems PFDI Bowel(+) PFDI Prolapse (+) FSM 17 68 93 56 0 FOTO Avg Avg Change # visits *higher score represents better pelvic floor functioning +lower score represents better pelvic floor functioning PSFS Activity 06/20/2025 Squatting wearing jeans 6 Coughing 6 Having a bowel movement 6 Observation: Posture: wnls Gait Analysis: wnls Lumbar Mobility: WNL for rx Mentation: alert and oriented x 3 Palpation (abdomen): [x] No TTP (tenderness to palpation) noted Scar Location: none Diastasis Recti (in finger width): Above: 1 At umbilicus:1 Below: 1 Neuro: [] NT Sensation (B) UEs: [x] intact Sensation (B) LEs: [x] intact Reflexes: Anal: [] present [] absent Cough: [] present [] absent Pelvic Floor Exam Pt provided verbal consent for internal examination after explanation of examination. External: Skin Condition: [] intact [] hemorrhoids [] cysts [] swelling [] varicosities [] lesions [x] Mild atrophy [] other (explain): Sensation: Anal [place] [x] present [] absent [] diminished [] NT S5 [x] present [] absent [] diminished [] NT S4 [x] present [] absent [] diminished [] NT S3 [x] present [] absent [] diminished [] NT Palpation: [x] no tenderness to palpation noted Tenderness to palpation noted at: [] superficial transverse perineal ([] Right [] Left [] Bilat) [] ischiocavernosus ([] Right [] Left [] Bilat) [] bulbocavernosus ([] Right [] Left [] Bilat) [] perineum [] other (explain) Tone: [] normal [x] hypotonic [] hypertonic Perineal Body Mobility: Voluntary Contract [x] present [] absent Voluntary Relax [x] present [] absent Involuntary Contract (Cough) [] present [x] absent Involuntary Relax [] present [x] absent Perineal Body Descent: Rest [] Flattened [] Supported Bear [place] Strongly [] Present (Cauda) [x] Absent (=normal / cephalad) Internal: Sensation: [x] intact [] diminished [] absent Palpation: [] no tenderness to palpation noted [] tenderness / pain to palpation noted at : [] LA ([] Right [] Left [] Bilat) [] ATLA ([] Right [] Left [] Bilat) [] OI ([] Right [] Left [] Bilat) [] post fourchette [] other (explain) Vaginal Vault size: [x] WNL [] Increased [] Decreased P E R F E C (TA) T (cough) 1/5 5 sec 4 6 [] P [x] A [] NT [] P [x] A [] NT [] P [x] A [] NT Able to elongate PFM: [x] Yes with lots of cues [] No Pelvic Organ Prolapse Grade Anterior/Cystocele [x]0 []1 []2 []3 []4 NT [] Posterior/Rectocele []0 []1 [x]2 []3 []4 NT [] Apical/Vaginal [x]0 []1 []2 []3 []4 NT [] Treatment: Bladder Diary: [x] patient educated on importance of filling out bladder diary at home, complete with fluid intake, voids, and leakage when applicable. Voiding: [x] patient educated on normal voiding and urination cycle and the physiology of bowel and bladder control muscles and pelvic floor muscles. The patient was educated on bladder dysfunction as well. The patient was also educated on prolapse and its affect on urination. [x] Pt instructed on bulge / double void technique after voiding to facilitate PFM elongation and complete bowel / bladder emptying. Dietary: [x] patient educated on avoiding the 4 Cs and other bladder irritants to reduce bladder irritation and leakage. Pt educated on proper water intake (and strategies for same) to promote normal bowel / bladder function. Bowel: [] Patient educated on completing daily bowel diary until next session - provided handout. [x] Discussed rationale for daily fiber and / or miralax to improve the consistency and frequency of BMs. [x] Reviewed and demonstrated proper positioning and technique for defecation to reduce PFM stress,including use of foot stool / squatty potty. Other: [x] Pt instructed to use ample amounts of water based lubricant during intercourse to reduce pain and irritation (sample provided). [x] Reviewed strategies to protect the pelvic floor from strain / prolapse. PF strengthening: [x] Short-hold (1 sec): 10 Times, 3-5 times per day [x] Long-hold (10 sec): 10 Times, 3-5 times per day PF relaxation to help reduce discomfort and irritation/pain of pelvic floor and lower abdomen: [] Belly Breathing: x5-6 reps, 2+ x/day [x] PFM Relaxation/BULGE [] Other: [] Reviewed use of kegel weights for home and provided information to order [x] During internal exam, pt was provided with verbal as well as manual cues to facilitate PFM contraction (+/- coordination with cough) and PFM elongation Patient/Family Instructed on: [x] see handout [x] HEP [] refer to above information Patient's Response to teaching: Instruction/patient education, Verbalized understanding, Returned demonstration Assessment: Impression: Chanda Larry presents with signs and symptoms consistent with PF Weakness. Functional impairments and activity limitations include: urinary leakage after urination on toilet or in bed if prolonged urge. Pt would benefit from skilled physical therapy services in order to address Strength and pelvic floor coordination. Goals Rehab potential: [x] good [] fair [] poor [] guarded Short Term Goals: (set for 4 weeks) Update/Status Patient will be independent with HEP upon D/C in order to promote long-term health and reduce risk for injury. [x] Unmet [] Progressing [] Met Pt to demo understanding of healthy bowel and bladder habits to promote normal ADL function, limiting pain. [x] Unmet [] Progressing [] Met Hand Spray Operator Goals: (set for 8 weeks) Update/Status Pt to report nocturia to no > 1 episode per night to improve sleep habits and overall function [x] Unmet [] Progressing [] Met Pt to demonstrate 'normal' bladder habits to allow for normal functioning with ADLs and promote PF health - voiding 5-8x / day on average [x] Unmet [] Progressing [] Met Pt to report at least a 50% reduction in UI episodes to promote improved ADLs [x] Unmet [] Progressing [] Met PSFS will improve by at least 1-2 representing an increase in function. [x] Unmet [] Progressing []Met Per discussion with patient, decrease leakage after urination. [x] Unmet [] Progressing [] Met [x] Unmet [] Progressing [] Met Plan [] Continue per plan of care [] Alter current plan (see comments) [x] Plan of care initiated [] Hold pending MD visit [] Discharge Comment: Patient is recommended to be seen up to 1 time per week for 8 weeks. Treatments may consist of Therapeutic exercise 10832, Neuromuscular re-education 90295, Manual soft tissue and/or joint mobilization 88859, Patient education, Electrical stimulation (unattended) 85089, Electrical stimulation (unattended Medicare) G0283, Therapeutic activity 27151, and Self care/Home management training 64808. Patient present with co-morbidities of incontinence and personal factors of N/A that may impact patient/family's ability to Attend social activities, Perform ADLs, and Engage in community. During today's evaluation, he/she presented with problem areas in musculoskeletal system, integumentary system, and neuromuscular system that are impacting functional activities and participation (see objectivemeasures for further detail). Due to consistent signs and symptoms, the patient's presentation is stable at this time. This patient presented today with low complexity. Reference Chart: Co-morbidities & Personal Factors Body system elements Presentation Clinical Decision Making Low Evaluation 0 1-2 Stable / Predictable Low Moderate Evaluation 1-2 3 or more Evolving/ Changing Moderate High Evaluation 3 or more 4 or more Unstable/ Unpredictable High Signature: Hermila Aaron, PT Date: 06/20/2025 documented in this encounter Plan of Treatment Upcoming Encounters Date Type Department Care Team (Late st Contact Info) Description 09/05/2025 9:00 AM EDT Office Visit [facility] [address] [address] China Tavares, TIM [address] [place] [address] Scheduled Referrals Name Type Priority Associated Diagnoses Orde r Schedule AMB REFERRAL TO PHYSICAL THERAPY Outpatient Referral Routine Overactive bladder Ordered: 06/02/2025 documented as of this encounter Visit Diagnoses Not on filedocumented in this encounter
--- OUTSIDE RECORDS SUMMARY | 2025-06-28 09:11 | XMS_ITS | Encounter Summary ---
Author Organization [place] [address] Care Team Providers Care Gypsum Block Setter Name Role Phone Unavailable Primary Care Provider Unavailabl e Reason for Visit * Physical Medicine - Authorized Specialty Diagnoses / Procedures Referred By Teresita treviño Referred To Contact Physical Therapist / Physical Therapy Diagnoses Overactive bladder Sharlene Dc MD [address] [place] [address] Phone: tel: fax: Hermila Aaron, PT [address] [place] [address] Phone: tel: fax: Referral ID Status Reason Start Date Expiration Date Visits Requested Visits Authorized [id number] Authorized Specialty Services Required 06/20/2025 06/20/2026 90 Encounter Details Date Type Department Care Team (Latest Contact Info) Description 06/28/2025 9:11 AM EDT - 06/28/2025 11:59 PM EDT Hospital Encounter [facility] Physical Therapy [address] [place] [address] Hermila Aaron, PT [address] [place] [address] Discharge Disposition: Home or Self [...] 06/02/25 Progressing MD Diagnosis: Overactive bladder Restrictions/Precautions: [place] Physician: Dao CONTRERAS Follow Up: 09/05/25 Evaluation Date: 06/20/2025 Reassessment Due: 07/21/25 Current Bladder treatment (meds):MYRBETRIQ Current Bowel treatment (supplements/meds):Linzess [] Psyllium (amount): [x] other Primary Insurance: ANTHEM/ANTHEM PPO Insurance Authorization: AMB REFERRAL TO PHYSICAL THERAPY Authorized (06/20/2025-06/20/2026) Visits Requested Visits Authorized Visits Completed Visits Scheduled 1 2 Details Referral ID: [id number] Authorization Status Reason: Covered Benefit Authorization Comments: -- Referred To: Hermila Aaron, PT at [facility] Referred By: Sharlene Dc MD at [facility], [facility] Creation Date: 06/02/2025 Referral Reasons: [...] pain. [x] Unmet [] Progressing [] Met Detention Goals: (set for 8 weeks) Update/Status Pt [...] 9:00 AM EDT Office Visit [facility] [address] [address] China Tavares APRN [address] [place] [address] documented as of this encounter Visit Diagnoses Not on filedocumented in this encounter
--- NOTE | 2025-08-15 15:13 | US_ITS ---
PROCEDURE INFORMATION: Exam: US Right Breast, Complete Exam date and time: 08/15/2025 3:22 PM Age: 55 years old Clinical indication: Follow-up of a previously biopsied area at 9 o'clock, 1 cm from the nipple, in December of 2024, yielding papilloma. TECHNIQUE: Imaging protocol: Complete ultrasound of all four quadrants of the right breast and the retroareolar regions, including ultrasound of the axilla when performed. COMPARISON: US BIOPSY BREAST RT 12/09/2024 8:02 AM FINDINGS: ULTRASOUND: Breast ultrasound findings: Ultrasound of the right breast at the 12 o'clock axis, 2 cm from the nipple demonstrates a complicated cyst that measures 0.6 x 0.7 x 0.9 cm. Ultrasound of the right breast in the lateral aspect, 9 o'clock axis, 1 cm from the nipple demonstrates a stable debris-filled duct with associated biopsy tissue marker. No suspicious mass or shadowing. IMPRESSION: 1. 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 This is stable since 11/17/2024. Yearly ultrasound can be used for surveillance if clinically indicated. 2. A complicated cyst in the right breast 12 o'clock axis, 2 cm from the nipple is also stable since 11/17/2024. A six-month follow-up right breast ultrasound for this finding is recommended to ensure stability over time. ASSESSMENT: BI-RADS Category 3: Probably benign.
--- OUTSIDE RECORDS SUMMARY | 2025-08-15 15:13 | XMS_ITS | Encounter Summary ---
Author Organization [place] [address] Care Team Providers Care Occupational Therapist Assistant Name Role Phone Unavailable Primary Care Provider Unavailabl e Encounter Details Date Type Department Care Team (Late st Contact Info) Description 06/20/2025 Plan of Care Documentation [facility] Physical Therapy [address] [place] [phone] Social History Tobacco Use Types Packs/Day Years [...] 06/02/25 Progressing MD Diagnosis: Overactive bladder Restrictions/Precautions: [place] Physician: Dao CONTRERAS Follow Up: 09/05/25 Evaluation Date: 06/20/2025 Reassessment Due: 07/21/25 Current Bladder treatment (meds):MYRBETRIQ Current Bowel treatment (supplements/meds):Linzess [] Psyllium (amount): [x] other Primary Insurance: ANTHEM/ANTHEM PPO Insurance Authorization: AMB REFERRAL TO PHYSICAL THERAPY Authorized (06/02/2025-06/02/2026) Visits Requested Visits Authorized Visits Completed Visits Scheduled 1 1 -- 1 Details Referral ID: [id number] Authorization Status Reason: -- Authorization Comments: -- Referred To: Kandy Sidhu, PT at [facility] PHYSICAL THERAPY Referred By: Sharlene Dc MD at [facility], [facility] Ed Creation Date: 06/02/2025 Referral Reasons: Specialty Services Required Referral Order: AMB REFERRAL TO PHYSICAL THERAPY Time In/Out: 6261-0409 Timed Treatment Minutes: Therapeutic activities 14 minutes [...] absent Discharge absent Pain absent GH 3cm [place] Pelvic Strength 0/5 Prolapse: 2 Strength: 0/5 Urinary frequency Daytime - frequent , she goes every 3-4 hours ; leaks if holds too long Nighttime - [x] 0 [x] 1 [] 2 [] 3 [] 4 other: Bowel problems - Frequency of BM - [x] daily [] qod [] Specify: Valsalva to defecate - [] yes [x] No [] sometimes [place] Stool chart type: [] 1 [] 2 [...] Living situation: sign other and mother, 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 Patient Goals: she would like to work [...] Mild atrophy [] other (explain): Sensation: Anal [place] [x] present [] absent [] diminished [] [...] pain. [x] Unmet [] Progressing [] Met [place] Fishing Hand Goals: (set for 8 weeks) Update/Status Pt [...] weeks. Treatments may consist of Therapeutic exercise 36799, Neuromuscular re-education 57592, Manual soft tissue and/or joint mobilization 09231, Patient education, Electrical stimulation (unattended) 07785, Electrical stimulation (unattended Medicare) G0283, Therapeutic activity 79902, and Self care/Home management training 09433. Patient present with co-morbidities of incontinence and [...] 9:00 AM EDT Office Visit [facility] [address] [address] China Tavares, TIM [address] [place] [address] documented as of this encounter Visit Diagnoses Not on filedocumented in this encounter
--- OUTSIDE RECORDS SUMMARY | 2025-08-15 15:13 | XMS_ITS | Patient Health Record ---
Author Organization [facility] Address [address] [place] [address] Care Team Providers Care Group Home Manager Name Role Phone KAY FRANKEEN Primary Care Provider Unavailab cynthia Abernathy AUTOMOBILE SERVICE STATION MANAGER-BC, Justina Unavailable [facility] Unavailable Unavailable Allergies No Known Allergies [...] of distal end of right radius (disorder) ([id number]) Other closed intra-articular fracture of distal end [...] [address] [place] [address] 01/14/2025 Justina Abernathy Other extraarticular fracture of [...] The patient is to return immediately to [facility] for any complications prior to their [...] Insured Coverage Start Date Coverage End Date [facility] [address] [place] [address] [phone] [id number] [phone] SHONDA ASCENCIO Self - patient is the insured Medical (General) History Medical History History ICD Code Anxiety disorder Surgical History Surgery Date(Month/Year) Rt distal radius ORIF 03/26/22 Bladder sling 09/12/22 Hospitalization History Reason Date(Month/Year) post op
--- OUTSIDE RECORDS SUMMARY | 2025-08-15 15:13 | XMS_ITS | Clinical Summary ---
Author Organization [facility] [place] Address [address] [place] [phone] Phone Care Team Providers Care Preschool Assistant Teacher Name Role Phone Unavailable Primary Care [...] - 06/28/2025 11:59 PM EDT Hospital Encounter [facility] Physical [address] [address] Hermila Aaron, PT Discharge Disposition: Home or Self Care 06/20/2025 12:18 PM EDT - 06/20/2025 11:59 PM EDT Hospital Encounter [address] [address] [phone] Hermila Aaron, PT Discharge Disposition: Home or Self Care 06/20/2025 Plan of Care Documentation [facility] Physical [address] [address] 06/20/2025 Orders Only [facility] Physical Therapy [address] [place] [address] Sharlene Dc MD 06/06/2025 Results Follow-Up [facility] [place] [address] [place] [address] Sharlene Dc MD URINALYSIS, URINE CULTURE (NO STAIN) 06/02/2025 9:00 AM EDT Office Visit [facility] Urogynecology [address] [address] Sharlene Dc MD Incomplete uterovaginal [...] Description 09/05/2025 9:00 AM EDT Office Visit [facility] Urogynecology [address] [address] China Tavares APRN [address] [place] [address] Health Maintenance Due Date Last [...] from Last 3 Months Results * (ABNORMAL) [facility] URINALYSIS POC (06/02/2025 9:33 AM EDT) UA Color POC Yellow Color 06/02/2025 9:[address] [facility] Appear POC Clear Clear 06/02/2025 9:35 AM EDT [facility] UA Gluc POC Negative Negative mg/dL 06/02/2025 9:35 AM EDT [facility] UA Bili POC Negative Negative 06/02/2025 9:35 AM EDT [facility] UA Ketones POC Negative Negative mg/dL 06/02/2025 9:35 AM EDT [facility] UA SG POC 1.020 1.001 - 1.035 no units 06/02/2025 9:35 AM EDT [facility] UA Blood POC Trace-Intac t(A) Negative 06/02/2025 9:35 AM EDT [facility] UA pH POC 7.5 5.0 - 8.0 pH 06/02/2025 9:35 AM EDT [facility] UA Protein POC Negative Negative mg/dL 06/02/2025 9:35 AM EDT [facility] UA Urobilinogen POC 0.2 0.2, 1.0 06/02/2025 9:35 AM EDT [facility] UA Nitrite POC Negative Negative 06/02/2025 9:35 AM EDT [facility] UA Leuk Est POC Negative Negative 9:35 AM EDT [facility] Urine STRUCTURE OF URINARY TRACT PROPER / Unknown 06/02/2025 9:33 AM EDT 06/02/2025 9:35 AM EDT us Sharlene Dc MD POINT OF CARE TEST ORDERA BLES Final Result [facility] [place] [address] * (ABNORMAL) URINALYSIS (06/02/2025 9:31 AM [...] ORDERABLES Final Re sult [facility] [address] [facility] , [address] [place] [id number] * URINE CULTURE (NO STAIN) (06/02/2025 9:31 AM EDT) Culture No growth at 30 hours. 06/04/2025 3:09 AM EDT [facility] URINARY BLADDER STRUCTURE / Unknown 06/02/2025 9:31 AM EDT 06/02/2025 9:31 AM EDT Sharlene Dc MD MICROBIOLOGY - GENERAL OR DERABLES Final Result [facility] [address] [facility] , [place] [address] from Last 3 Months Insurance GUILLERMO PPO [employer] PPO
--- OUTSIDE RECORDS SUMMARY | 2025-08-15 15:13 | XMS_ITS | Encounter Summary ---
Author Organization [place] [address] Care Team Providers Care Ski Base Trimmer Name Role Phone Unavailable Primary Care Provider Unavailabl e Encounter Details Date Type Department Care Team (Latest Contact Info) Description 06/06/2025 Results Follow-Up [facility] [address] [phone] Sharlene Dc MD [address] [place] [address] URINALYSIS, URINE CULTURE (NO STAIN) Social [...] 9:00 AM EDT Office Visit [facility] [address] [address] China Tavares APRN [address] [place] [address] documented as of this encounter Visit Diagnoses Not on filedocumented in this encounter
--- OUTSIDE RECORDS SUMMARY | 2025-08-15 15:13 | XMS_ITS | Clinical Summary ---
Author Organization [facility] Address [address] [place] [address], [address] [place] [address] Care Team Providers Care Pump And Still Operator Name Role Phone Unavailable Primary Care [...]
--- OUTSIDE RECORDS SUMMARY | 2025-08-15 15:13 | XMS_ITS | Encounter Summary ---
Author Organization [place] [address] Care Team Providers Care Lightout Examiner Name Role Phone Unavailable Primary Care Provider Unavailabl e Encounter Details Date Type Department Care Team (Late st Contact Info) Description 06/20/2025 Orders Only [facility] Physical Therapy [address] [place] [phone] Sharlene Dc MD [address] [place] [address] Social History Tobacco Use Types Packs/Day [...] 9:00 AM EDT Office Visit [facility] [address] [address] China Tavares APRN [address] [place] [address] documented as of this encounter Visit Diagnoses Not on filedocumented in this encounter
== END 2025-08-15 23:59 | disposition home or self-care (01) ==
LOC: RAD 15:12
PROVIDERS: PCP Nurse Practitioner Family; Visit Provider Nurse Practitioner Family
DX: N60.01 Solitary cyst of right breast (principal); Z98.890 Other specified postprocedural states
CPT/HCPCS: 76641

== ENCOUNTER 2025-09-03 09:39 | Outpatient (CLI) | payer BC, SELFPAY ==
--- OUTSIDE RECORDS SUMMARY | 2022-03-06 07:20 | XMS_ITS | Continuity of Care Document ---
Author Organization [facility] Address [address] [place] [phone] Phone Care Team Providers Care Commissioner Of Conciliation Name Role Phone Seth Arroyo Unavailable Unavailable Advance Directives Directive Yes / No Effective Date File Name No Information Encounters Encounter Description Practice Location Reason(s) For Visit Diagnoses Date Provider [facility], [address] [place] [address], [id number], tel:[phone] [facility] Major depression 2021 Miguel Seth. [address] [facility] [place] [place], [id number], [place]. tel:[phone] [facility], [address] [place] [address], [id number], tel:[phone] [address] [place] [address] Major depression 2021 Miguel Seth. [address] [facility] [place] [place], [id number], [place]. tel:[phone] [facility], [address] [place] [address], [id number], [place] tel:[phone] [facility] Major depression 2021 Miguel Seth. [address] [facility] [place], [id number], [place]. tel:[phone] [facility], [address] [place] [address], [id number], tel:[phone] [facility] Major depression Dec-07- 2021 Miguel Seth. [address], [place], [place], [id number], [place]. tel:[phone] Family History Family Member Type Diagnosis Age At Onset Daughter Problem (finding) Alive and well Daughter Problem (finding) manic-depressive state Payers Payer name Insurance type Covered alliance party ID Authoriza tion(s) No Information Social History Type Description Quantity Date Captured Comments Sex Female Smoking Status No Information Chief Complaint And Reason For Visit No Information History Of Present Illness Encounter Date Complaint History Of Prese nt Illness No Information Instructions Date Instruction Additional Infor mation No Information Assessments Type Assessment Date assessment Major depression Goals Health Concern Goal Type Priority Status Date Depression: Client is experiencing low mood, sleep problems, crying spells, social withdrawal and poor concentration. to get along with my daughter Patient Goal New
--- OUTSIDE RECORDS SUMMARY | 2024-12-24 05:00 | XMS_ITS ---
Author Organization [facility] Address [address] [place] [address] Care Team Providers Care Supervisor Putty And Caluking Name Role Phone MERLY FRANK Primary Care Provider Unavailab cynthia Abernathy DRAFTER CARTOGRAPHIC-BC, Justina Unavailable [facility] Unavailable Unavailable REASON FOR VISIT RT HAND Encounters Encounter Location Date Provider Diagnosis [facility] [address] [place] [address] 12/24/2024 Justina Abernathy Plan Of Treatment No Information Progress Notes * SHONDA ASCENCIO LDOB:[birth year] (55 yo F)Acc No.[id number]:12/24/2024 Progress Notes Patient: SHONDA COLLADO Provider: Anna Abernathy APRN, MSN, DRAFTER CARTOGRAPHIC-BC :1970 A ge:54 Y S ex:Female Date:12/24/2024 Address[address] [id number] Pcp:MERLY FRANK Subjective: * Chief Complaints: * 1 . RT HAND. * Medical History: Objective: * Vitals: Therapeutic Interventions: Assessment: Plan: * Treatment: * * Electronic signature of Geneva Abernathy DRAFTER CARTOGRAPHIC-BC on 09/03/2025 at 09:43 AM EDT Sign off status: Pending * Provider: Anna Abernathy APRN, MSN, DRAFTER CARTOGRAPHIC-BC Date: 0 12/24/2024 Generated for Printi ng/Faxing/eTransmitting on: 1 09:43 AM EDT
--- OUTSIDE RECORDS SUMMARY | 2025-09-03 09:43 | XMS_ITS | Clinical Summary ---
Author Organization [facility] [place] Address [address] [place] [address] Phone Care Team Providers Care Sea Shell Gatherer Name Role Phone Unavailable Primary Care Provider [...] - 06/28/2025 11:59 PM EDT Hospital Encounter [facility] Physical [address] [address] Hermila Aaron, PT Discharge Disposition: Home or Self Care 06/20/2025 12:18 PM EDT - 06/20/2025 11:59 PM EDT Hospital Encounter [address] [address] [phone] Hermila Aaron, PT Discharge Disposition: Home or Self Care 06/20/2025 Plan of Care Documentation [facility] Physical [address] [address] 06/20/2025 Orders Only [facility] Physical Therapy [address] [place] [address] Sharlene Dc MD 06/06/2025 Results Follow-Up [facility] Urogynecology [address] [address] Sharlene Dc MD URINALYSIS, URINE CULTURE (NO STAIN) from Last 3 Months Surgical History Surgery [...] Description 09/05/2025 9:00 AM EDT Office Visit [facility] Urogynecology [address] [address] China Tavares APRN [address] [place] [phone] Health Maintenance Due Date Last Done Comments [...] Breast Cancer Screening 02/12/2025 02/12/2023 COVID-19 Vaccine (1 - 2023-2 5 season) 2025 Influenza Vaccine (#1) 2025 Meningococcal B Vaccine Aged Out No l onger eligible based on patient's age to complete this topic Insurance GUILLER[employer] PPO GUILLERMO PPO
--- OUTSIDE RECORDS SUMMARY | 2025-09-03 09:43 | XMS_ITS | Encounter Summary ---
Author Organization [place] [address] Care Team Providers Care Floorhand Name Role Phone Unavailable Primary Care Provider Unavailabl e Encounter Details Date Type Department Care Team (Late st Contact Info) Description 06/20/2025 Orders Only [facility] Physical Therapy [address] [place] [phone] Sharlene Dc MD [address] [place] [address] Social History Tobacco Use Types Packs/Day [...] 9:00 AM EDT Office Visit [facility] [address] [address] China Tavares APRN [address] [place] [address] documented as of this encounter Visit Diagnoses Not on filedocumented in this encounter
--- OUTSIDE RECORDS SUMMARY | 2025-09-03 09:43 | XMS_ITS | Patient Health Record ---
Author Organization [facility] Address [address] [place] [address] Care Team Providers Care Peanut Picker Name Role Phone KAY FRANKEEN Primary Care Provider Unavailab cynthia Abernathy PODIATRY TEACHER-BC, Justina Unavailable [facility] Unavailable Unavailable Allergies No Known Allergies [...] of distal end of right radius (disorder) ([id number]) Other closed intra-articular fracture of distal end [...] [address] [place] [address] 01/14/2025 Justina Abernathy Other extraarticular fracture of [...] The patient is to return immediately to [facility] for any complications prior to their [...] Insured Coverage Start Date Coverage End Date [facility] [address] [place] [id number] [phone] SHONDA ASCENCIO Self - patient is the insured Medical (General) History Medical History History ICD Code Anxiety disorder Surgical History Surgery Date(Month/Year) Bladder sling 09/12/22 Rt distal radius ORIF 03/26/22 Hospitalization History Reason Date(Month/Year) post op
--- OUTSIDE RECORDS SUMMARY | 2025-09-03 09:43 | XMS_ITS | Encounter Summary ---
Author Organization [place] [address] Care Team Providers Care Sterilizer Operator Name Role Phone Unavailable Primary Care Provider Unavailabl e Encounter Details Date Type Department Care Team (Latest Contact Info) Description 06/06/2025 Results Follow-Up [facility] [address] [phone] Sharlene Dc MD [address] [place] [address] URINALYSIS, URINE CULTURE (NO STAIN) Social [...] 9:00 AM EDT Office Visit [facility] [address] [address] China Tavares APRN [address] [place] [address] documented as of this encounter Visit Diagnoses Not on filedocumented in this encounter
--- OUTSIDE RECORDS SUMMARY | 2025-09-03 09:43 | XMS_ITS | Clinical Summary ---
Author Organization [facility] Address [address] [place] [address], [address] [place] [address] Care Team Providers Care Nitroglycerin Neutralizer Name Role Phone Unavailable Primary Care Provider [...]
[2025-09-03 10:05] LABS: Hematocrit 42.9 % (37.0-47.0); Hemoglobin 14.4 g/dL (12.2-16.2); Immature Granulocytes % 0.6 %; Mean Corpuscular HGB Conc 33.6 g/dL (31.8-35.4); Mean Corpuscular Hemoglobin 29.4 pg (27.0-31.2); Mean Corpuscular Volume 87.6 fl (81-99); Nucleated Red Blood Cells % 0 %; Platelet Count 216 K/mm3 (142-424); Red Blood Count 4.90 M/mm3 (4.20-5.40); Red Cell Distribution Width-SD 39.5 fL; White Blood Count 4.7 K/mm3 (4.8-10.8)
[2025-09-03 11:43] LABS: Alanine Aminotransferase 17 U/L (12-78); Albumin Level 4.1 g/dl (3.5-5.0); Albumin/Globulin Ratio 1.7 (1.1-1.8); Alkaline Phosphatase 78 U/L (38-126); Anion Gap 14.4 mEq/L (5-15); Aspartate Amino Transferase 26 U/L (14-36); Bilirubin,Total 0.8 mg/dl (0.2-1.3); Blood Urea Nitrogen 17 mg/dl (7-17); Calcium 9.4 mg/dl (8.4-10.2); Carbon Dioxide 26 mmol/L (22.0-30.0); Chloride 105 mmol/L (98-107); Cholesterol 168 mg/dl (140-200); Creatinine,Serum 0.60 mg/dl (0.52-1.04); Estimated Glomerular Filt Rate 105 ml/min (>60); GFR (African American) 127 ML/MIN (>60); Globulin 2.4 g/dL (1.3-3.2); Glucose 100 mg/dl (74-100); HDL Cholesterol 53 mg/dl (40-60); Potassium 4.4 mmoL/L (3.5-5.1); Sodium 141 mmol/L (136-145); Total Protein,Serum 6.5 g/dl (6.3-8.2); Triglycerides 81 mg/dl (30-150)
[2025-09-03 12:11] LABS: Thyroid Stimulating Hormone 1.04 uIU/mL (0.465-4.68)
[2025-09-03 12:30] LABS: Vitamin B12 896 pg/mL (239-931)
[2025-09-03 13:13] LABS: Hemoglobin A1C 4.9 % (4.0-6.0)
== END 2025-09-03 23:59 | disposition home or self-care (01) ==
LOC: LAB 09:41
PROVIDERS: PCP Nurse Practitioner Family; Visit Provider Nurse Practitioner Family
DX: R73.01 Impaired fasting glucose (principal); Z86.39 Personal history of other endocrine, nutritional and metabolic disease
CPT/HCPCS: 36415; 80053; 80061; 82607; 83036; 84443; 85025